=== PATIENT | female | born 2000 | race Caucasian/White ===

== ENCOUNTER 2025-03-29 05:04 | Inpatient (IN) | payer OTHER, SELFPAY ==
[2025-03-29] VITALS (183 sets, daily range): BP systolic 87–210; BP diastolic 41–174; PULSE 36–277; RESP 15–17; TEMP 36.3–36.9; O2SAT 80–100; BMI 34.3
--- OUTSIDE RECORDS SUMMARY | 2025-03-29 05:14 | XMS_ITS | Clinical Summary ---
Author Organization [facility] Address [address] [place] [id number] Care Team Providers Care Stitcher Tape Controlled Machine Name Role Phone Kim Nails MD Primary Care Provider [phone] Allergies Active Allergy Reactions Criticality Noted Date Comments Amoxicillin Rash Low 08/15/2024 Edema Medications Vit-Fe Fumarate-FA ( 19) Chew Tab Chew by mouth daily. Active ondansetron (ZOFRAN-ODT) 8 MG disintegrating tablet Take 1 tablet (8 mg total) by mouth every 8 (eight) hours as needed for Nausea. Active Active Problems Problem Noted Date Diagnosed Date ([facility]) 09/19/2024 Comments Yes Family History Medical History Relation Comments Cancer Maternal Grandmother Colon Relation Status Comments Maternal Grandmother Alive Social History Tobacco Use Types Packs/Day Years Used Date Smoking Tobacco: Never Passive Smoke Exposure: Never Smokeless Tobacco: Never Tobacco Cessation:Counseling Given: No Alcohol Use Standard Drinks/Week Comments Not Currently 0 (1 standard drink = 0.6 oz pur e alcohol) PHQ-2 Answer Date Recorded Patient Health Questionnaire-2 Score 0 08/15/2024 Comments Yes Sex and Gender Information Value Date Recorded Sex Assigned at Female 08/04/2024 10:20 AM MEDIA SERVICES COORDINATOR Legal Sex Female 9:32 AM MEDIA SERVICES COORDINATOR Gender Identity Female 11/22/2024 8:08 AM CDT Sexual Orientation Straight 11/22/2024 8: 08 AM CDT Last Filed Vital Signs Vital Sign Reading Time Taken Comments Blood Pressure 118/60 11/22/2024 2:26 PM CDT Pulse 94 11/22/2024 2:26 PM CDT Temperature 37 C (98.6 F) 11/22/2024 2:26 PM CDT Respiratory Rate 16 08/15/2024 9:43 AM MEDIA SERVICES COORDINATOR Oxygen Saturation 99% 11/22/2024 2:26 PM CDT Inhaled Oxygen Concentration - - Weight 80.8 kg (178 lb 3.2 oz) 11/22/2024 2:26 P M CDT Height 160 cm (5' 3) 08/15/2024 9:43 AM MEDIA SERVICES COORDINATOR Body Mass Index 31.57 08/15/2024 9:43 AM MEDIA SERVICES COORDINATOR Plan of Treatment Health Maintenance Due Date Last Done Comments HPV Vaccines (1 - 3-dose series) 2016 Meningococcal B Vaccine (1 o f 2 - Standard) 2017 DTaP, Tdap and Td Vaccines ( 1 - Tdap) 2020 Hepatitis B Vaccines (1 of 3 - 19+ 3-dose series) 2020 COVID-19 Vaccine (1 - 2023-2 5 season) 2025 Influenza Adult (#1) 2025 Annual Physical 08/15/2025 08/15/2024 Chlamydia Screening Females ages 16-24 08/29/2025 08/29/2024 Cervical Cancer Screening Pa p Smear (Age 21 to 29) Every 3 Years 08/30/2027 08/29/2024 Cervical Cancer Screening 08/30/2027 RSV Immunization or 60+ Years (1 - 1-dose 75+ series) 2076 PHQ-2 (Physician [place]) Completed 08/15/2024 Hepatitis C Completed 09/19/2024, 09/19/2024 Meningococcal Vaccine Aged Out No isi rick eligible based on patient's age to complete this topic Pneumococcal Vaccine: Pediatrics (0 to 5 Years) and At-Risk Patients (6 to 49 Years) Aged Out No longer eligible b ased on patient's age to complete this topic RSV Immunizations Under 20 Months Aged Out No longer eligible b ased on patient's age to complete this topic Insurance Care Teams Stitcher Tape Controlled Machine Relationship Specialty Start Date End Date Kim Nails MD [address] [place] [id number] PCP - General FAMILY PRACTICE 11/22/24
--- NOTE | 2025-03-29 05:41 | LDADM ---
This patient, Toño Guerrero, was admitted to Labor/Delivery/Recovery 102 on 03/29/25 at 05:04. Plans for labor, pain management and were discussed with patient. Patient/family oriented to hospital policies and general routines including ID bracelet, bed and alarms, visiting hours, pain management, procedures, bathroom and other care routines, personal items, smoking policy, room service/diet and guest tray routines, infant security routines, and visiting hours. Patient/Family are encouraged to report perceived risks to care and to ask questions if they do not understand what they are told or what they should do. See OBIX for further documentation.
[2025-03-29 05:46] LABS: Hematocrit 35.4 % (37.0-47.0); Hemoglobin 11.2 g/dL (12.0-15.0); Immature Granulocyte Percent A 0.6 % (0-0.5); Lymphocytes Absolute Auto 1.58 K/mm3 (0.9-3.2); Mean Corpuscular HGB Conc 31.6 g/dl (32-36); Mean Corpuscular Hemoglobin 26.2 pg (26-34); Mean Corpuscular Volume 82.7 fl (80-100); Nucleated Red Blood Cells Absolute Auto 0.000 K/mm3 (0.0-0.012); Nucleated Red Blood Cells Perc 0.0 % (0.0-0.2); Platelet Count Result 166 k/mm3 (150-375); Red Blood Count 4.28 M/mm3 (4.2-5.4); White Blood Count 8.6 K/mm3 (4.5-10.0)
[2025-03-29] MEDS: OXYTOCIN 30 UNITS/NS 500 ML 30 UNITS/500 ML BAG 6 UNITS IV CONT (05:46)
[2025-03-29] MEDS: LACTATED RINGERS 1,000 ML 125 ML IV CONT ×3 (05:46→13:15)
--- NOTE | 2025-03-29 08:17 | WPDOBADMIT ---
Obstetrics - Admit Note Admission Note: record reviewed. No pertinent additions to the history and/or any subsequent changes in the physical findings that are not consistent with the expected course of the were found. Additions to the history and/or subsequent changes in the physical findings follow. Admit for IOL, SVE /-2 AROM large amount of clear, odorless fluid, anticipate vaginal delivery
--- NOTE | 2025-03-29 12:47 | WPDANESEPPF ---
Anes - Initial Pre Proc Eval Date/Time: 03/29/25 12:47 Surgeon: Harrison Luna MD Pre Op Diagnosis: IOL Patient Data Age: 24 Gender: F Height: 1.6 m Weight: 88 kg Last Vital Signs Temp 36.6 C 03/29/25 11:05 Pulse 70 03/29/25 12:46 BP 107/84 03/29/25 12:46 Pulse Ox 100 03/29/25 12:46 O2 Del Method Room Air 03/29/25 05:41 Allergies Allergy/AdvReac Type Severity Reaction Status Date / Time amoxicillin Allergy Mild Rash Verified 03/29/25 05:40 Home Medications ?Medication ?Instructions ?Recorded ?Confirmed ?Type omeprazole 20 mg capsule,delayed 20 mg PO DAILY 03/27/25 03/29/25 History release vit no.95-ferrous 1 tablet PO DAILY 03/27/25 03/29/25 History fumarate 28 mg-folic acid 800 mcg tablet () Laboratory Tests 03/29/25 05:18 WBC 8.6 K/mm3 (4.5-10.0) RBC 4.28 M/mm3 (4.2-5.4) Hgb 11.2 L g/dL (12.0-15.0) Hct 35.4 L % (37.0-47.0) MCV 82.7 fl (80-100) MCH 26.2 pg (26-34) MCHC 31.6 L g/dl (32-36) RDW 15.2 H % (11.5-14.5) Plt Count 166 k/mm3 (150-375) MPV 11.3 H fl (7.4-10.4) Immature Gran % (Auto) 0.6 H % (0-0.5) Neut % (Auto) 74.7 H % (45.5-73.1) Lymph % (Auto) 18.4 % (18.3-44.2) Campbell % (Auto) 5.6 % (2.6-8.5) Eos % (Auto) 0.5 % (0-4.4) Baso % (Auto) 0.2 % (0.2-1.2) Lymph # (Auto) 1.58 K/mm3 (0.9-3.2) Campbell # (Auto) 0.5 K/mm3 (0.1-0.6) Eos # (Auto) 0.0 K/mm3 (0-0.3) Baso # (Auto) 0.0 K/mm3 (0.0-0.1) Abs Immat Gran (auto) 0.05 H K/mm3 (0.00-0.031) Absolute Neuts (auto) 6.4 K/mm3 (1.3-6.7) Absolute Nucleated RBC 0.000 K/mm3 (0.0-0.012) Nucleated RBC % 0.0 % (0.0-0.2) Blood Type O Positive Antibody Screen Negative Patient hx anesthesia problems: none Family hx anesthesia problems: none Results Review: All pre-operative results and documents have been reviewed as part of the pre-operative evaluation. [facility] Family History Family History Other No pertinent family history Social History Social History Smoking status: Never smoker Second hand tobacco smoke exposure: Yes Substance use: never Lack of Transportation: No Lack of Food: Never True Current Housing: I Have Housing Concerned About Future Housing: No Difficulty Paying Gas/Electric Bills: No Difficulty Paying for Meds: No Currently Unemployed: No Education: High School Diploma/GED Difficulty w/ Childcare or Family Care: No Spiritual care concerns: No Anes - Eval Final PreProcedure Day of Procedure 03/29/25 12:47 Patient weight: obese Neurological: alert and oriented Last oral intake: >/= 8 hours ASA classification: II Emergent: no Anesthetic plan: proceed Anesthesia type and monitoring: regional epidural and standard monitoring Results Review: All pre-operative results and documents have been reviewed as part of the pre-operative evaluation. Informed Consent: The patient's anesthetic plan and its attendant risks and benefits were discussed with the patient/family/POA. Questions were solicited and answers provided to the satisfaction of the patient/family/POA.
[2025-03-29] MEDS: FAMOTIDINE 20 MG/2 ML VIAL IV PUSH (13:22)
[2025-03-29] MEDS: ACETAMINOPHEN 500 MG TABLET 1000 MG PO ×2 (13:22→19:25)
[2025-03-29] MEDS: ONDANSETRON INJ 4 MG/2 ML VIAL IV PUSH (13:24)
--- NOTE | 2025-03-29 13:29 | PM.IMHP ---
H&P: HPI History of Present Illness Date/Time: 03/29/25 13:29 Chief Complaint: Term Narrative: This patient is a 24-year-old 1 at 39 weeks gestation who presented for induction of labor. The infant is not tolerating labor. There were nonreassuring heart tones, including a prolonged heart rate deceleration. She is remote from delivery. We agreed to perform delivery. She understands risks, benefits, and alternatives. She has completed informed consent process is ready to proceed. The patient understands the details of the procedure. The procedure has been explained in detail. She understands the risks. She understands that injuries may occur that result in hospitalization, more surgery, and severe illness. She understands risk of hemorrhage and infection. She denies any chest pain or shortness of breath. She denies any nausea, vomiting, fever, chills. Review of Systems Review of Systems: All systems reviewed & are unremarkable except as noted in HPI and below Constitutional: Constitutional: Denies chills, Denies fatigue, Denies fever(s) and Denies weakness Eyes: Eyes: Denies blurry vision, Denies change in vision, Denies loss of peripheral vision, Denies loss of vision, Denies other visual disturbances and Denies eye pain ENT: Denies vertigo, Denies dizziness, Denies hearing loss, Denies mouth pain, Denies nasal obstruction, Denies neck mass and Denies neck pain Cardiovascular: Cardiovascular: Denies chest pain, Denies diaphoresis, Denies syncope, Denies leg edema and Denies dyspnea Respiratory: Respiratory: Denies chest congestion, Denies cough, Denies hemoptysis, Denies dyspnea and Denies wheezing Gastrointestinal: Gastrointestinal: Denies abdominal pain, Denies constipation, Denies diarrhea, Denies nausea and Denies vomiting Genitourinary: Genitourinary: Denies hematuria, Denies change in libido, Denies nocturia, Denies genital lesions, Denies flank pain and Denies urinary urgency Musculoskeletal: Musculoskeletal: Denies abnormal gait, Denies back pain, Denies myalgias, Denies arthralgias, Denies joint swelling, Denies muscle weakness and Denies neck pain Integumentary/Breasts: Skin/Breast: Denies swelling, Denies breast pain, Denies breast mass, Denies dry skin, Denies nipple discharge, Denies unusual bruising and Denies jaundice Neurologic: Denies Neuro-related abnormal movements, Denies Abnormal speech present, Denies abnormal gait, Denies behavioral changes, Denies confusion, Denies vertigo, Denies dizziness, Denies syncope, Denies loss of vision, Denies memory loss, Denies convulsions and Denies weakness Psychiatric: Psychiatric: Denies abnormal sleep pattern, Denies behavioral changes, Denies change in libido, Denies confusion, Denies depression, Denies anhedonia and Denies memory loss Endocrine: Endocrine: Reports no additional endocrine complaints, Denies change in libido and Denies fatigue Hematologic/Lymphatic: Hematologic/Lymphatic: Reports no additional hematologic/lymphatic complaints Allergic/Immunologic: Allergic/Immunologic: Reports no additional allergic/immunologic complaints and Denies wheezing PMFSH Family History Family History Other No pertinent family history Social History Social History Smoking status: Never smoker Second hand tobacco smoke exposure: Yes Substance use: never Lack of Transportation: No Lack of Food: Never True Current Housing: I Have Housing Concerned About Future Housing: No Difficulty Paying Gas/Electric Bills: No Difficulty Paying for Meds: No Currently Unemployed: No Education: High School Diploma/GED Difficulty w/ Childcare or Family Care: No Spiritual care concerns: No Meds Home Medications and Allergies Home Medications ?Medication ?Instructions ?Recorded ?Confirmed ?Type omeprazole 20 mg capsule,delayed 20 mg PO DAILY 03/27/25 03/29/25 History release vit no.95-ferrous 1 tablet PO DAILY 03/27/25 03/29/25 History fumarate 28 mg-folic acid 800 mcg tablet () Allergies Allergy/AdvReac Type Severity Reaction Status Date / Time amoxicillin Allergy Mild Rash Verified 03/29/25 05:40 Vital Signs Vital Signs - 24 hr 03/29/25 05:41 03/29/25 05:49 03/29/25 05:50 Temperature 97.3 F L Pulse Rate 96 Blood Pressure 137/74 Pulse Oximetry 98 Oxygen Delivery Room Air 03/29/25 05:54 03/29/25 05:59 03/29/25 06:01 Temperature Pulse Rate 94 Blood Pressure 120/60 Pulse Oximetry 97 97 Oxygen Delivery 03/29/25 06:04 10/08/25 06:09 03/29/25 06:14 Temperature Pulse Rate Blood Pressure Pulse Oximetry 97 96 97 Oxygen Delivery 03/29/25 06:15 03/29/25 06:19 03/29/25 06:24 Temperature Pulse Rate 87 Blood Pressure 121/74 Pulse Oximetry 97 98 Oxygen Delivery 03/29/25 06:29 03/29/25 06:30 03/29/25 06:34 Temperature Pulse Rate 87 Blood Pressure 129/72 Pulse Oximetry 98 100 Oxygen Delivery 03/29/25 06:39 03/29/25 06:44 03/29/25 06:46 Temperature Pulse Rate 77 Blood Pressure 104/52 L Pulse Oximetry 98 97 Oxygen Delivery 03/29/25 06:49 03/29/25 06:54 03/29/25 06:59 Temperature Pulse Rate Blood Pressure Pulse Oximetry 98 97 98 Oxygen Delivery 03/29/25 07:00 03/29/25 07:04 03/29/25 07:09 Temperature Pulse Rate 79 Blood Pressure 121/79 Pulse Oximetry 97 99 Oxygen Delivery 03/29/25 07:14 03/29/25 07:15 03/29/25 07:19 Temperature Pulse Rate 94 Blood Pressure 123/78 Pulse Oximetry 97 98 Oxygen Delivery 03/29/25 07:24 03/29/25 07:29 03/29/25 07:30 Temperature Pulse Rate 88 Blood Pressure 130/81 Pulse Oximetry 98 99 Oxygen Delivery 03/29/25 07:36 03/29/25 07:41 03/29/25 07:46 Temperature Pulse Rate 79 Blood Pressure 117/67 Pulse Oximetry 98 96 96 Oxygen Delivery 03/29/25 07:51 03/29/25 07:56 03/29/25 08:00 Temperature Pulse Rate 89 Blood Pressure 121/76 Pulse Oximetry 95 97 Oxygen Delivery 03/29/25 08:01 03/29/25 08:06 03/29/25 08:11 Temperature Pulse Rate Blood Pressure Pulse Oximetry 96 96 98 Oxygen Delivery 03/29/25 08:15 03/29/25 08:16 03/29/25 08:21 Temperature Pulse Rate 77 Blood Pressure 109/66 Pulse Oximetry 99 96 Oxygen Delivery 03/29/25 08:26 03/29/25 08:30 03/29/25 08:31 Temperature 97.5 F L Pulse Rate 92 Blood Pressure 111/71 Pulse Oximetry 95 98 Oxygen Delivery 03/29/25 08:36 03/29/25 08:41 03/29/25 08:45 Temperature Pulse Rate 85 Blood Pressure 112/70 Pulse Oximetry 100 100 Oxygen Delivery 03/29/25 08:46 03/29/25 08:51 03/29/25 08:56 Temperature Pulse Rate Blood Pressure Pulse Oximetry 99 96 97 Oxygen Delivery 03/29/25 09:04 03/29/25 09:09 03/29/25 09:14 Temperature Pulse Rate Blood Pressure Pulse Oximetry 80 L 98 97 Oxygen Delivery 03/29/25 09:16 03/29/25 09:19 03/29/25 09:24 Temperature Pulse Rate 84 Blood Pressure 100/70 Pulse Oximetry 97 96 Oxygen Delivery 03/29/25 09:29 03/29/25 09:31 03/29/25 09:34 Temperature Pulse Rate 74 Blood Pressure 105/58 L Pulse Oximetry 98 97 Oxygen Delivery 03/29/25 09:39 03/29/25 09:44 03/29/25 09:45 Temperature Pulse Rate 87 Blood Pressure 94/75 L Pulse Oximetry 97 97 Oxygen Delivery 03/29/25 09:49 03/29/25 10:00 03/29/25 10:01 Temperature Pulse Rate 131 H Blood Pressure 111/65 Pulse Oximetry 96 96 Oxygen Delivery 03/29/25 10:06 03/29/25 10:11 03/29/25 10:16 Temperature Pulse Rate 83 Blood Pressure 91/70 L Pulse Oximetry 95 96 97 Oxygen Delivery 03/29/25 10:21 03/29/25 10:26 03/29/25 10:29 Temperature Pulse Rate 67 Blood Pressure 112/59 L Pulse Oximetry 96 96 Oxygen Delivery 03/29/25 10:30 03/29/25 10:31 03/29/25 10:36 Temperature Pulse Rate 89 Blood Pressure 103/80 Pulse Oximetry 98 97 Oxygen Delivery 03/29/25 10:41 03/29/25 10:46 03/29/25 10:51 Temperature Pulse Rate 82 Blood Pressure 119/61 Pulse Oximetry 96 97 95 Oxygen Delivery 03/29/25 10:53 03/29/25 10:55 03/29/25 10:56 Temperature Pulse Rate 99 158 H Blood Pressure 138/75 185/153 H Pulse Oximetry 98 Oxygen Delivery 03/29/25 10:58 03/29/25 11:00 03/29/25 11:01 Temperature Pulse Rate 92 84 Blood Pressure 115/93 H 136/69 Pulse Oximetry 98 Oxygen Delivery 03/29/25 11:04 03/29/25 11:05 03/29/25 11:06 Temperature 97.8 F Pulse Rate 79 Blood Pressure 126/71 Pulse Oximetry 98 Oxygen Delivery 03/29/25 11:07 03/29/25 11:10 03/29/25 11:11 Temperature Pulse Rate 90 96 Blood Pressure 128/59 L 121/55 L Pulse Oximetry 97 Oxygen Delivery 03/29/25 11:13 03/29/25 11:16 03/29/25 11:21 Temperature Pulse Rate 114 H 75 Blood Pressure 106/74 105/55 L Pulse Oximetry 97 98 Oxygen Delivery 03/29/25 11:26 03/29/25 11:31 03/29/25 11:36 Temperature Pulse Rate 69 Blood Pressure 114/45 L Pulse Oximetry 99 98 97 Oxygen Delivery 03/29/25 11:41 03/29/25 11:46 03/29/25 11:51 Temperature Pulse Rate 75 Blood Pressure 115/66 Pulse Oximetry 99 99 99 Oxygen Delivery 03/29/25 11:56 03/29/25 12:01 03/29/25 12:06 Temperature Pulse Rate 68 Blood Pressure 109/51 L Pulse Oximetry 98 100 100 Oxygen Delivery 03/29/25 12:11 03/29/25 12:16 03/29/25 12:21 Temperature Pulse Rate 68 Blood Pressure 107/42 L Pulse Oximetry 100 100 100 Oxygen Delivery 03/29/25 12:26 03/29/25 12:31 03/29/25 12:36 Temperature Pulse Rate 75 Blood Pressure 106/48 L Pulse Oximetry 100 100 100 Oxygen Delivery 03/29/25 12:41 03/29/25 12:46 03/29/25 12:51 Temperature Pulse Rate 70 Blood Pressure 107/84 Pulse Oximetry 100 100 100 Oxygen Delivery 03/29/25 12:56 03/29/25 13:00 03/29/25 13:01 Temperature Pulse Rate 152 H Blood Pressure 107/55 L Pulse Oximetry 100 100 Oxygen Delivery 03/29/25 13:06 03/29/25 13:11 03/29/25 13:15 Temperature Pulse Rate 121 H Blood Pressure 112/69 Pulse Oximetry 100 100 Oxygen Delivery 03/29/25 13:16 03/29/25 13:21 03/29/25 13:26 Temperature Pulse Rate Blood Pressure Pulse Oximetry 100 100 100 Oxygen Delivery Exam Const: General: cooperative, healthy appearing, comfortable and no acute distress Orientation/consciousness: oriented to person, oriented to place and oriented to time HENMT: Head: normal to inspection Ears: external ears normal Face/Nose/Sinus: Normal external nose present and normal facial exam Face and sinus: normal facial exam Eyes: General: appearance normal, both eyes and all related structures Neck: Neck: normal visual inspection, trachea midline and supple Resp: Auscultation: clear to auscultation bilaterally, no crackles, no rales, no rhonchi and no wheezes Cardio: Rate: regular rate Rhythm: regular rhythm Heart sounds: no click, no murmurs and no rubs GI: GI Palp: No abdominal tenderness, No Soft to palpation, No Tenderness to palpation present (GI) and No Palpable mass present Auscultation: normal bowel sounds Skin: General skin exam: normal color and no rashes or lesions noted Neuro: General: oriented to person, oriented to place and oriented to time Extrem: General: normal to inspection, no joint enlargement, no clubbing, cyanosis or edema, no pedal edema and no calf tenderness Psych: Appearance: grossly normal Mental Status: mental status grossly normal Speech and movement: Normal speech and movement present H&P: Results Labs Labs: Short CBC 03/29/25 Range/Units 05:18 WBC 8.6 (4.5-10.0) K/mm3 Hgb 11.2 L (12.0-15.0) g/dL Hct 35.4 L (37.0-47.0) % Plt Count 166 (150-375) k/mm3 Assessment and Plan Assessment and plan (1) Non-reassuring heart rate or rhythm affecting management of mother: Code(s): O36.8390 - Maternal care for abnormalities of the heart rate or rhythm, unspecified trimester, not applicable or unspecified Status: Acute Plan This patient is a 24-year-old 1 at 39 weeks gestation who presented for induction of labor. The is not tolerating labor. There were nonreassuring heart tones, including a prolonged heart rate deceleration. She is remote from delivery. We agreed to perform delivery. She understands risks, benefits, and alternatives. She has completed informed consent process is ready to proceed.
--- NOTE | 2025-03-29 13:32 | WPDHPUPDATE1 ---
History and Physical Update Update Date/Time: 03/29/25 13:32 History and Physical has been reviewed, including an updated exam of the patient. There are NO changes in the patient's condition. Risks, benefits, and alternatives have been discussed and questions answered. Patient agrees to proceed with procedure.
[2025-03-29] MEDS: ceFAZolin 2 GM in SODIUM CHLORIDE 0.9% IV 50 ML 100 ML IVPB (13:35)
[2025-03-29] MEDS: AZITHROMYCIN IV 500 MG in SODIUM CHLORIDE 0.9% IV 250 ML IVPB (14:05)
--- NOTE | 2025-03-29 14:17 | W.PM.OBCSD ---
OB - Delivery Note Procedure Delivery date: 03/29/25 Pre-op diagnosis: Non-Reassuring Status Post-op Diagnosis: Same Procedure Performed: Primary Surgeon: Harrison Luna MD Anesthesia type: Epidural Description of Procedure/Findings: The patient was taken the operating room.? She was prepped and draped in dorsal supine position with a leftward tilt.? This was done after spinal anesthetic was applied.? A low-transverse skin incision was made and carried down till of the fascia with the knife.? The fascial incision was made with the knife.? The fascial incision was extended laterally with Blank scissors.? The fascia was tented upward superiorly and inferiorly the rectus muscles were dissected off bluntly.? The rectus muscles were the midline.? The preperitoneal fat and peritoneum were dissected open bluntly at the superior aspect of the rectus muscles.? The peritoneal incision was extended superior and inferior with good position of bladder.? The uterine incision was made with a scalpel down to the level of the amniotic cavity.? The amniotic cavity was entered bluntly.? The infant was delivered.? The cord was clamped and cut and the infant was handed off to waiting pediatric staff.? Cord bloods were obtained.? The placenta was removed manually.? The uterus was exteriorized.? The uterus was cleared of all clots, debris and membranes.? The uterus was closed in 0 Vicryl running lock fashion.? An imbricating over a was placed along the incision line as well.? The uterus was returned to the abdomen.? The gutters were cleared of all clots and debris.? The fascia was closed with 0 Vicryl running fashion.? The subcutaneous tissue was irrigated pinpoint bleeders were cauterized.? The skin was closed with subcuticular absorbable bailey.? The skin incision line was covered with glue.? The patient tolerated the procedure well.? She has taken recovery room in stable condition.? Sponge lap and needle counts were correct x2.?
--- NOTE | 2025-03-29 14:57 | S_PTH ---
PATIENT: Toño Guerrero LOC: [facility] U#:[id number] AGE/SX: 24/F ROOM: 290 RE03/29/[address]: Harrison Luna MD : [id number] BED: 00 DIS: 04/01/2025 SPEC #: [id number] RECD: 03/30/25 07:13 STATUS: STEVE REQ #: [id number] YESIKA: 03/29/25 14:[address]: Harrison Luna DEPT: [facility] Surgical RECD BY: Jojo Guo Tissues: A - Placenta Procedures: Hematoxylin and Eosin Stain Gross and Microscopic Level 5
[2025-03-29] MEDS: KETOROLAC 15 MG/ML VIAL (*BKC) IV PUSH (19:25)
[2025-03-29] MEDS: DOCUSATE SODIUM 100 MG CAPSULE PO (19:25)
[2025-03-29] MEDS: SIMETHICONE 80 MG TAB.CHEW PO (19:25)
[2025-03-30 04:40] VITALS: BP 103/62; PULSE 81; RESP 16; TEMP 36.8; O2SAT 99
[2025-03-30 05:18] LABS: Hematocrit 28.7 % (37.0-47.0); Hemoglobin 9.0 g/dL (12.0-15.0); Immature Granulocyte Percent A 0.7 % (0-0.5); Lymphocytes Absolute Auto 1.07 K/mm3 (0.9-3.2); Mean Corpuscular HGB Conc 31.4 g/dl (32-36); Mean Corpuscular Hemoglobin 26.7 pg (26-34); Mean Corpuscular Volume 85.2 fl (80-100); Nucleated Red Blood Cells Absolute Auto 0.000 K/mm3 (0.0-0.012); Nucleated Red Blood Cells Perc 0.0 % (0.0-0.2); Platelet Count Result 112 k/mm3 (150-375); Red Blood Count 3.37 M/mm3 (4.2-5.4); White Blood Count 7.5 K/mm3 (4.5-10.0)
[2025-03-30 06:01] LABS: Syphilis IgG/IgM Antibody Non-Reactive (Nonreactive)
[2025-03-30] MEDS: ACETAMINOPHEN 500 MG TABLET 1000 MG PO ×3 (08:00→19:10)
[2025-03-30] MEDS: KETOROLAC 15 MG/ML VIAL (*BKC) IV PUSH (08:00)
[2025-03-30 08:40] VITALS: BP 115/65; PULSE 86; RESP 16; TEMP 37.4; O2SAT 97
[2025-03-30] MEDS: DOCUSATE SODIUM 100 MG CAPSULE PO ×2 (09:15→16:29)
[2025-03-30] MEDS: MULTIVIT/MIN/PREN/FOL AC/IRON TABLET 1 TAB PO (09:15)
[2025-03-30] MEDS: SIMETHICONE 80 MG TAB.CHEW PO ×3 (09:15→16:29)
--- NOTE | 2025-03-30 09:15 | PC.NURSE ---
Consulted with patient to assess needs related to . Discussed with mother her successes, concerns and any questions she has. We reviewed working with the , supporting breast, protecting her nipples with an optimal deep latch, good positioning, and good hand washing. Encouraged understanding the benefits of skin to skin, responding to feeding cues, frequencies of feeding 8-12 times in 24 hours (approximately 2-3 hours), duration of feedings, milk production, intake/output feeding sheet and signs of adequate intake encouraging swallowing at the breast. Reviewed positioning and alignment, supporting breast, off-centered (asymmetrical latch) and leading with the chin with big, open, wide gape. latched a little shallow to the [right] breast in [cradle] position without any pain. Per Primary RN infant may be having frenulum clipped by line controller later this morning to assist with latch. Education given to the mother of how to visualize the suckling (with good rocking jaw motion) swallows (dropping of the lower jaw) and how to listen for drinking at the breast (the ka sound). The was [able] to maintain latch without discomfort to mother. Nipple care reviewed with optimal latch, good positioning and using clean hands when touching her breast. Resources used to facilitate learning were used from the [visual handouts/ tool/mom and baby guide]. Mother voiced understanding of the education shared, to call for assistance if the infant does not latch or if there is discomfort with . Reported to the Primary RN.
--- NOTE | 2025-03-30 11:05 | PM.OBPNVD ---
OB - PN: Subj Subjective Date/time seen: 03/30/25 11:05 Interval history: PPD#1 s/p PLTCS Pain controlled with meds Voiding without issue Tolerating general diet OB - PN: Obj Data Labs 03/30/25 04:37 Labs: Laboratory Results - last 24 hr 03/30/25 04:37 WBC 7.5 RBC 3.37 L Hgb 9.0 L Hct 28.7 L MCV 85.2 MCH 26.7 MCHC 31.4 L RDW 15.3 H Plt Count 112 L MPV 11.3 H Immature Gran % (Auto) 0.7 H Neut % (Auto) 78.2 H Lymph % (Auto) 14.[address] [place] % (Auto) 6.0 Eos % (Auto) 0.4 Baso % (Auto) 0.4 Lymph # (Auto) 1.07 [place] # (Auto) 0.5 Eos # (Auto) 0.0 Baso # (Auto) 0.0 Abs Immat Gran (auto) 0.05 H Absolute Neuts (auto) 5.9 Absolute Nucleated RBC 0.000 Nucleated RBC % 0.0 Syphilis IgG/IgM Ab Non-reactive OB - PN A/P Assessment and Plan (1) S/P : Code(s): Z98.891 - History of uterine scar from previous surgery Status: Acute Plan day: 1 Plan: routine care Time Spent With Patient Time: Total time spent is greater than 50% in coordination of care (as documented) at patient's floor/unit and/or counseling patient: Review of Systems Review of Systems: All systems reviewed & are unremarkable except as noted in HPI and below Exam Const: General: comfortable and no acute distress Orientation/consciousness: patient oriented x3 Resp: Effort & Inspection: normal respiratory effort GI: Other: abdomen soft, nontender, nondistended, incision c/d/i
[2025-03-30 12:55] VITALS: BP 110/70; PULSE 88; RESP 16; TEMP 37.5; O2SAT 97
[2025-03-30] MEDS: IBUPROFEN 600 MG TABLET PO ×2 (13:30→19:10)
--- NOTE | 2025-03-30 14:42 | WPDANLDPN2 ---
Anes-Prog Note L&D Date/Time: 03/30/25 14:42 Comfortable throughout: labor, delivery and section Neuraxial method: epidural Epidural/Spinal procedure site: clean & non-tender Neuro status: Neuro function grossly intact. Cardiovascular status: normal Respiratory status: normal Airway patency: baseline Mental status: baseline Post-Op hydration status: normal Vital Signs: Last Vital Signs Temp 37.5 C 03/30/25 12:55 Pulse 88 03/30/25 12:55 Resp 16 03/30/25 12:55 BP 110/70 03/30/25 12:55 Pulse Ox 97 03/30/25 12:55 O2 Del Method Room Air 03/30/25 04:40 Pain score (VAS): 0 I/O: Intake & Output 03/29/25 03/30/25 03/30/25 23:59 07:59 15:59 Output Total 1250 Balance -1250 Post-procedural complaints: none Patient feedback: Patient satisfied with anesthetic care.
--- NOTE | 2025-03-30 14:42 | WPDANLDNPN2 ---
Anes-Prog Note L&D-Neuraxial Date/Time: 03/30/25 14:42 Neuraxial medications: epidural PF morphine Opiod-related complaints: none Patient feedback: Patient satisfied with post-operative pain management.
--- NOTE | 2025-03-30 17:05 | PC.NURSE ---
1650. Observed mother latching to the right breast in cross cradle position. was able to maintain an appropriate latch. Mother declines complains of nipple pain/discomfort. Encouraged mother to keep infant awake and nursing at the breast for as long as baby desires. Mother taught to listen for infant swallowing during feedings. Reviewed using the blue feeding sheet to record time and duration of feeding. Mother voiced understanding of the education shared, to call for assistance if the does not latch or if there is discomfort with . name/number on communication board. Reported to the Primary RN.?
[2025-03-30 19:10] VITALS: BP 119/81; PULSE 90; RESP 18; TEMP 36.7; O2SAT 100
[2025-03-30] MEDS: LANOLIN (LANSINOH) 7.5 GM CREAM 1 APPLIC TOPICAL (19:10)
[2025-03-30] MEDS: LIDOCAINE 5% PATCH 1 PATCH TRANSDERM (19:10)
[2025-03-31] MEDS: ACETAMINOPHEN 500 MG TABLET 1000 MG PO ×4 (01:10→19:00)
[2025-03-31] MEDS: IBUPROFEN 600 MG TABLET PO ×4 (01:10→19:00)
--- NOTE | 2025-03-31 07:37 | P.PNOB_ITS ---
OB - PN: Subj Subjective Date/time seen: 03/31/25 07:37 Interval history: PPD#2 s/p PLTCS Pain controlled with meds Voiding without issue Tolerating general diet OB - PN: Obj Data Labs 03/30/25 04:37 OB - PN A/P Plan day: 2 Plan: routine care and discharge home Time Spent With Patient Time: Total time spent is greater than 50% in coordination of care (as documented) at patient's floor/unit and/or counseling patient: Review of Systems 2 Review of Systems: All systems reviewed & are unremarkable except as noted in HPI and below Exam 2 Const: General: cooperative Chest: Chest palpation & inspection: normal inspection of the chest Resp: Effort & Inspection: normal respiratory effort GI: Inspection: normal to inspection Other: incision CDI Back/Spine/Pelvis: Back: no CVA tenderness Skin: General skin exam: normal color Neuro: General: patient oriented x3 Extrem: General: normal to inspection Psych: Appearance: grossly normal
--- NOTE | 2025-03-31 07:44 | PM.OBDSVD ---
DS: Admitting Diagnosis Discharge Date 03/31/25 Admitting Diagnosis IOL DS: Discharge Diagnosis Discharge Diagnosis (1) S/P : Code(s): Z98.891 - History of uterine scar from previous surgery Status: Acute OB - DS: Summary OB Procedures : None OB Procedures Intrapartum: OB Procedures: : None Peripartum Data Procedures: Procedures Operation Date: 03/29/25 13:30 Actual Procedure Side Surgeon p Section Bilateral Harrison Luna MD Time Spent with Patient Time attestation: Total time spent providing and/or coordinating discharge services: DS: Data Data Completed and Pending Pending studies at discharge: Pending at discharge 03/29/25 14:57 Surgical [PTH] Routine Discharge Plan Discharge Attending physician on discharge: Lindy Del Rosario Discharging Clinician: Harrison Luna Patient Disposition: Home Activity: pelvic rest Diet: regular Patient Instructions: Antibiotic Form Patient Language: Serbian Stand Alone Forms: General Discharge Information Follow-up/Referrals: Harrison Luna MD [Physician, RESIDENTIAL MANAGER] - 1 Week Discharge Medications: New oxycodone 5 mg Tablet 5 mg PO Q4H PRN (Reason: Pain Rated 4-6) 14 Days Qty: 20 0RF Continued PNV no.95-ferrous fumarate-FA [] 28 mg iron- 800 mcg tablet 1 tablet PO DAILY omeprazole 20 mg capsule,delayed release(DR/EC) 20 mg PO DAILY Date of admission: 03/29/25 05:04 Primary Care Provider: Kim Nails Admitting Provider: Harrison Luna Attending physician on admission: Harrison Luna Condition: Stable
[2025-03-31 07:45] VITALS: BP 107/60; PULSE 85; RESP 16; TEMP 36.8; O2SAT 97
[2025-03-31] MEDS: oxyCODONE HCL (*CRX) 5 MG TAB IR PO ×3 (09:03→23:15)
[2025-03-31] MEDS: MULTIVIT/MIN/PREN/FOL AC/IRON TABLET 1 TAB PO (09:03)
[2025-03-31] MEDS: SIMETHICONE 80 MG TAB.CHEW PO ×3 (09:04→17:13)
[2025-03-31] MEDS: LIDOCAINE 5% PATCH 1 PATCH TRANSDERM (11:00)
--- NOTE | 2025-03-31 11:30 | PC.NURSE ---
Introductions were made, then consulted with patient to assess needs related to . Discussed with mother her?plans to feed?her and the?experience so far. She states that things are going well. She is choosing to supplement with formula at most feedings. Resources provided for inpatient and outpatient services with the feeding sheet, mom/baby guide and name written on the communication board. Mother voiced understanding of information and will call if there is a request for assistance. Reported to the Primary RN.
--- NOTE | 2025-03-31 13:45 | PC.NURSE ---
Patient was assisted with latching to the right breast by the primary RN. When I entered the room, baby was upright on mom's chest and had just finished eating for about 15 minutes on the first side. Parents have been offering both breasts at each feeding and then supplementing with formula. Mom is assisted to hold baby in cross cradle hold on the left breast. He gapes and attempts latching but needs a 'bite' made to be able to maintain the latch. Mom is educated on holding her breast for baby until he is stronger and able to maintain the latch on his own. Mom denies having any pain with latch. Baby suckles and pulls off after a short time, searching and fussing. Parents are encouraged to move on to the next step of their feeding process. Discussed milk flow rate and instant results from the bottle versus the breast. Patient and significant other both attentive and verbalize understanding. Primary RN updated.
[2025-03-31] MEDS: DOCUSATE SODIUM 100 MG CAPSULE PO (17:13)
[2025-03-31 19:25] VITALS: BP 110/71; PULSE 74; RESP 17; TEMP 36.2; O2SAT 98
[2025-04-01] MEDS: ACETAMINOPHEN 500 MG TABLET 1000 MG PO ×2 (01:20→07:31)
[2025-04-01] MEDS: IBUPROFEN 600 MG TABLET PO ×2 (01:20→07:31)
[2025-04-01] MEDS: SIMETHICONE 80 MG TAB.CHEW PO (07:31)
[2025-04-01] MEDS: DOCUSATE SODIUM 100 MG CAPSULE PO (07:31)
--- NOTE | 2025-04-01 07:55 | PC.NURSE ---
Consulted with mother concerning needs and she shared her ability to independently latch infant without pain, but often will not effectively feed at the breast and then a formula bottle has been given. Encouraged mother to use her breast pump to protect her milk supply if does not have an effective feed at the breast, per mother she also feels like her milk is coming in. Mother is feeding appropriately for growth of and understands stimulating infant to eat if needed. Infant has had appropriate feedings in the last 24 hours meets the outcomes for weight, output, blood sugar and jaundice at this time. Reinforced understanding of milk production, transition of milk, signs of adequate intake, transition of stool, prevention/relief of engorgement, plugged ducts, mastitis, responsive watching for feeding cues, the different methods of stimulating to breastfeed 1-3 hours after the start of the last feeding, community resources, and when to call a provider using the resource of the feeding sheet along with the mom and baby guide. Mother voiced understanding of the information shared, is confident to continue effectively her at home, when to call for assistance, denies any additional assistance or education at this time. Reported to the Primary RN.
[2025-04-01 08:54] VITALS: BP 128/71; PULSE 87; RESP 16; TEMP 36.6; O2SAT 96
--- NOTE | 2025-04-01 10:55 | P.PNOB_ITS ---
OB - PN: Subj Subjective Date/time seen: 04/01/25 10:55 Interval history: PPD#3 s/p PLTCS Pain controlled with meds Voiding without issue Tolerating general diet OB - PN: Obj Data Labs 03/30/25 04:37 OB - PN A/P Plan day: 3 Plan: routine care and discharge home Time Spent With Patient Time: Total time spent is greater than 50% in coordination of care (as documented) at patient's floor/unit and/or counseling patient: Review of Systems 2 Review of Systems: All systems reviewed & are unremarkable except as noted in HPI and below Exam 2 Const: General: cooperative, healthy appearing and comfortable Chest: Chest palpation & inspection: normal inspection of the chest Cardio: Rate: regular rate Back/Spine/Pelvis: Back: no CVA tenderness Skin: General skin exam: normal color Neuro: General: patient oriented x3
--- NOTE | 2025-04-01 10:56 | PM.OBDSVD ---
DS: Admitting Diagnosis Discharge Date 04/01/25 Admitting Diagnosis iol OB - DS: Summary OB Procedures : None OB Procedures Intrapartum: OB Procedures: : None Peripartum Data Procedures: Procedures Operation Date: 03/29/25 13:30 Actual Procedure Side Surgeon p Section Bilateral Harrison Luna MD Time Spent with Patient Time attestation: Total time spent providing and/or coordinating discharge services: DS: Data Data Completed and Pending Completed studies during hospitalization: Pending at discharge 03/29/25 14:57 Surgical [PTH] Routine Discharge Plan Discharge Attending physician on discharge: Lindy Del Rosario Discharging Clinician: Harrison Luna Patient Disposition: Home Activity: pelvic rest Diet: regular Patient Instructions: Antibiotic Form Patient Language: Micronesian Stand Alone Forms: General Discharge Information Follow-up/Referrals: Harrison Luna MD [Physician, CUSTOMER EXPERIENCE RETAIL CLERK] - 1 Week Discharge Medications: New oxycodone 5 mg Tablet 5 mg PO Q4H PRN (Reason: Pain Rated 4-6) 14 Days Qty: 20 0RF Continued PNV no.95-ferrous fumarate-FA [] 28 mg iron- 800 mcg tablet 1 tablet PO DAILY omeprazole 20 mg capsule,delayed release(DR/EC) 20 mg PO DAILY Date of admission: 03/29/25 05:04 Primary Care Provider: Kim Nails Admitting Provider: Harrison Luna Attending physician on admission: Harrison Luna Condition: Stable
[2025-04-03 08:25] VITALS: BP 113/60; PULSE 103; RESP 18; TEMP 36.5; O2SAT 100
== END 2025-04-01 13:13 | disposition home or self-care (01) | DRG 788 ==
LOC: ANHLDR 05:16 → ANHOB2 17:15
PROVIDERS: Admitting Provider Obstetrics & Gynecology; Visit Provider Obstetrics & Gynecology
PROC: 10D00Z1 Extraction of Products of Conception, Low, Open Approach (ICD-10-PCS; CPT 59514; principal; 2025-03-29 13:30)
DX: O69.81X0 Labor and delivery complicated by cord around neck, without compression, not applicable or unspecified (principal); Z37.0 Single live birth; Z3A.39 39 weeks gestation of pregnancy; O36.8330 Maternal care for abnormalities of the fetal heart rate or rhythm, third trimester, not applicable or unspecified
CPT/HCPCS: 36415; 85025; 86593; 86850; 86900; 86901; 88307; J0690; A9270; J0456; J1200; J1885; J2274; J2405; J2590; J2795; J7050; J7120